=== PATIENT | female | born 1970 | race Caucasian/White ===

== ENCOUNTER 2016-08-19 16:55 | Emergency (ER) | payer BC ==
[~2016-08-19] VITALS: Ht 149.9 cm; Wt 62.2 kg
[~2016-08-19 16:55] MED LIST: ASPIR-TRIN325 M1; ATARAX,VISTARIL25 MG PO; Bentyl PO; CEFDINIR300 MG PO; CIPRO500 MG PO; CITRACAL-VIT D1 EACH PO; Ecotrin PO; FLAGYL500 MG PO; FLOMAX0.4 MG PO; HYDROCHLOROTH12.5 M3 PO; LEVOTHYROXINE100 MCG PO; LEXAPRO20 MG PO; LITE COAT ASPI325 M1 PO; LOPRESSOR25 MG; LOPRESSOR25 MG PO; Levothroid,Synthroid PO; Lopressor PO; Lovenox SC; MOTRIN600 MG PO; NORCO 7.5/321 TABLET PO; PERCOCET 5/31 TABLET PO; PHENERGAN25 MG PR; PREDNISONE10 MG PO; PROMETHAZINE HC25 M1 PO; Protonix PO; SYNTHROID100 MCG; VALIUM5 MG PO; VENTOLIN HFA18 GM IH; VITAMIN B-125000 MC1 PO; VITAMIN C500 M1 PO; Vicodin,Norco 5/325 PO; WOMEN'S DAILY1 EAC1 PO; ZOCOR20 MG PO; celeBREX PO
[2016-08-19 17:03] VITALS: BP 142/96
[2016-08-19] MEDS ORDERED: PERCOCET 5/31 TABLET PO (17:56)
== END 2016-08-19 18:24 | disposition home or self-care (01) ==
LOC: EME 16:55
DX: S93.402A Sprain of unspecified ligament of left ankle, initial encounter (principal); X50.0XXA Overexertion from strenuous movement or load, initial encounter; Y92.008 Other place in unspecified non-institutional (private) residence as the place of occurrence of the external cause; M25.562 Pain in left knee
CPT/HCPCS: 73564; 73610; 73630; 99281; 99284